=== PATIENT | female | born 1975 | race Caucasian/White ===

== ENCOUNTER 2024-03-03 18:28 | Outpatient (CLI) | payer OTHER, MEDICAID, SELFPAY | END 2024-03-03 18:29 | disposition home or self-care (01) | LOC: AMB 03-17 12:43 | PROVIDERS: Visit Provider Emergency Medicine Emergency Medical Services | DX: S09.93XA Unspecified injury of face, initial encounter (principal); S89.92XA Unspecified injury of left lower leg, initial encounter; S69.92XA Unspecified injury of left wrist, hand and finger(s), initial encounter; V43.53XA Car driver injured in collision with pick-up truck in traffic accident, initial encounter; Y92.410 Unspecified street and highway as the place of occurrence of the external cause | CPT/HCPCS: A0425; A0427 ==